=== PATIENT | male | born 1995 | race Caucasian/White ===

== ENCOUNTER 2018-04-28 18:34 | Emergency (ER) | payer SELFPAY ==
[2018-04-28] MEDS ORDERED: DIPH/PERTUSS(ACELL)/TETANUS VAC/PF 0.5 ML SYR (>=10YO) IM ONE (20:00)
[2018-04-28] MEDS ORDERED: LIDOCAINE 1% INJ-PF (10 MG/ML) 30 ML SDV INJ ONE (20:00)
[2018-04-28] MEDS ORDERED: IBUPROFEN 600 MG TABLET PO ONE (20:00)
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
[2018-04-28 20:45] VITALS: BP 127/80
== END 2018-04-28 20:50 | disposition home or self-care (01) ==
LOC: ER 18:34
DX: S09.12XA Laceration of muscle and tendon of head, initial encounter (principal); S01.01XA Laceration without foreign body of scalp, initial encounter; R51 Headache; Y00.XXXA Assault by blunt object, initial encounter; Y93.89 Activity, other specified; Y92.009 Unspecified place in unspecified non-institutional (private) residence as the place of occurrence of the external cause; R03.0 Elevated blood-pressure reading, without diagnosis of hypertension; F17.200 Nicotine dependence, unspecified, uncomplicated; Z23 Encounter for immunization; Z88.2 Allergy status to sulfonamides
CPT/HCPCS: 99283; 90471; 90715; 12002; J3490

== ENCOUNTER 2018-05-04 12:28 | Emergency (ER) | payer SELFPAY ==
[2018-05-04 12:33] VITALS: BP 126/68
--- NOTE | 2018-05-04 13:16 | ER Document Report ---
ED Suture/Wound Recheck - General Chief Complaint: Staple Removal Stated Complaint: STAPLE REMOVAL/HEAD Time Seen by Provider: 05/04/18 12:42 Mode of Arrival: Ambulatory Information source: Patient Notes: 23-year-old male presented to ED for removal of sutures from his scalp. He had 5 alfa placed 6 days ago for laceration. Patient denies any pain any drainage or any complications to the site. Patient is alert and oriented respirations regular and unlabored speaking in full sentences walks with a even steady gait. TRAVEL OUTSIDE OF THE [place] IN LAST 30 DAYS: No - HPI Previous ED treatment: Laceration repair Quality of pain: No pain Severity: None Pain Level: Denies Context: Injury Symptoms since procedure: No complaints Exacerbated by: Denies Relieved by: Denies - Related Data Allergies/Adverse Reactions: Sulfa (Sulfonamide Antibiotics) Allergy (Verified 05/04/18 12:29) Past Medical History - General Information source: Patient - Social History Smoking Status: Current Every Day Smoker Cigarette use (# per day): Yes - Per day Chew tobacco use (# tins/day): No Smoking Education Provided: Yes - 4 minutes Frequency of alcohol use: Occasional Drug Abuse: Marijuana Occupation: [employer] Lives with: Family Family History: Reviewed & Not Pertinent Patient has suicidal ideation: No Patient has homicidal ideation: No - Past Medical History Cardiac Medical History: Reports: None, Other - Chiari malformation Pulmonary Medical History: Reports: None EENT Medical History: Reports: None Neurological Medical History: Reports: None Endocrine Medical History: Reports: None Renal/ Medical History: Reports: None Malignancy Medical History: Reports None GI Medical History: Reports: None Musculoskeltal Medical History: Reports Hx Musculoskeletal Trauma Skin Medical History: Reports None Psychiatric Medical History: Reports: None Traumatic Medical History: Reports: Hx Fractures - Fractured clavicle Infectious Medical History: Reports: None Surgical Hx: Negative Past Surgical History: Reports: None - Immunizations Immunizations up to date: Yes Hx Diphtheria, Pertussis, Tetanus Vaccination: Yes Review of Systems - Review of Systems Skin: Other - [place] to posterior scalp removed no redness no drainage no signs of infection no signs of inflammation patient tolerated well. Physical Exam - Vital signs Vitals: Temp Pulse Resp BP Pulse Ox 98.5 F 57 L 15 126/68 H 97 05/04/18 12:32 05/04/18 12:32 05/04/18 12:32 05/04/18 12:32 05/04/18 12:32 - Skin Location of irregularity: Scalp - Right posterior scalp laceration repaired 6 days ago with 5 alfa. No redness no inflammation no drainage scab to the area. Laceration well approximated 5 alfa removed bacitracin applied patient discharged home with instructions for Tylenol and Motrin. Course - Vital Signs Vital signs: Temp Pulse Resp BP Pulse Ox 98.5 F 57 L 15 126/68 H 97 05/04/18 12:32 05/04/18 12:32 05/04/18 12:32 05/04/18 12:32 05/04/18 12:32 Discharge - Discharge Clinical Impression: Removal of staple Condition: Stable Disposition: HOME, SELF-CARE Instructions: Family Physicians / Practices, Staple Removal ([facility]) Forms: Elevated Blood Pressure, Smoking Cessation Education
== END 2018-05-04 13:18 | disposition home or self-care (01) ==
LOC: ER 12:28
DX: S01.01XD Laceration without foreign body of scalp, subsequent encounter (principal); X58.XXXD Exposure to other specified factors, subsequent encounter; F17.210 Nicotine dependence, cigarettes, uncomplicated